=== PATIENT | female | born 1985 | race Two or more races ===

== ENCOUNTER 2018-12-02 01:10 | Inpatient (IN) | payer OTHER, MEDICAID ==
[2018-12-02] MEDS ORDERED: CARBOPROST 250 MCG INJ IM ×2 (03:00→17:00)
[2018-12-02] MEDS ORDERED: MISOPROSTOL 200 MCG TAB PR ×2 (03:00→17:00)
[2018-12-02] MEDS ORDERED: METHYLERGONOVINE 0.2 MG INJ IM ×2 (03:00→17:00)
[2018-12-02] MEDS ORDERED: OXYTOCIN 30 UNITS/LR 500 ML IV ×2 (03:00)
[2018-12-02 04:22] LABS: ADD MAN DIFF? NO
[2018-12-02 04:25] LABS: BASOPHILS % 0.4 % (0.0-2.0); EOSINOPHILS # 0.1 10^3/ul (0.0-0.5); EOSINOPHILS % 0.9 % (0.0-7.0); HEMATOCRIT 33.3 % (37.0-47.0); HEMOGLOBIN 10.5 g/dl (12.0-16.0); LYMPHOCYTES # 1.4 10^3/ul (0.8-2.9); LYMPHOCYTES % 25.9 % (15.0-51.0); MEAN CORPUSCULAR HEMOGLOBIN 25.4 pg (29.0-33.0); MEAN CORPUSCULAR HGB CONC 31.5 g/dl (32.0-37.0); MEAN CORPUSCULAR VOLUME 80.4 fl (82.0-101.0); MEAN PLATELET VOLUME 12.5 fl (7.4-10.4); MONOCYTE # 0.4 10^3/ul (0.3-0.9); NEUTROPHIL # 3.5 10^3/ul (1.6-7.5); NEUTROPHILS % 64.2 % (39.0-77.0); PLATELET COUNT 157 10^3/UL (140-415); RED BLOOD COUNT 4.14 10^6/ul (4.20-5.40); RED CELL DISTRIBUTION WIDTH 15.9 % (11.5-14.5)
[2018-12-02 04:25] LABS: WHITE BLOOD COUNT 5.4 10^3/ul (4.8-10.8)
[2018-12-02] MEDS: LACTATED RINGER'S 1,000 ML IV ×2 (04:38→10:42)
[2018-12-02 04:42] LABS: ADD UMIC YES; ALANINE AMINOTRANSFERASE 14 IU/L (13-69); ALBUMIN/GLOBULIN RATIO 0.93; ALKALINE PHOSPHATASE 127 IU/L (42-121); ANION GAP 6 (5-13); ASPARTATE AMINO TRANSFERASE 17 IU/L (15-46); BILIRUBIN,INDIRECT 0.3 mg/dl (0-1.1); BILIRUBIN,TOTAL 0.3 mg/dl (0.2-1.3); BLOOD UREA NITROGEN 14 mg/dl (7-20); CALCIUM 8.8 mg/dl (8.4-10.2); CARBON DIOXIDE 23 mmol/L (21-31); CHLORIDE 108 mmol/L (97-110); CREATININE 0.57 mg/dl (0.44-1.00); Estimated GFR > 60 mL/min (>60); GLUCOSE 92 mg/dl (70-220); POTASSIUM 4.2 mmol/L (3.5-5.1); SODIUM 137 mmol/L (135-144); TOTAL PROTEIN 6.2 g/dl (6.1-8.1); UR ASCORBIC ACID NEGATIVE (NEGATIVE); UR BACTERIA FEW /HPF (NONE SEEN); UR BILIRUBIN (Dip) NEGATIVE (NEGATIVE); UR BLOOD (Dip) NEGATIVE (NEGATIVE); UR CLARITY CLOUDY (CLEAR); UR COLOR YELLOW (YELLOW); UR GLUCOSE (Dip) NEGATIVE (NEGATIVE); UR KETONES (Dip) NEGATIVE (NEGATIVE); UR LEUKOCYTE ESTERASE (Dip) 2+ Leu/ul (NEGATIVE); UR MUCUS FEW /HPF (NONE SEEN); UR NITRITE (Dip) NEGATIVE (NEGATIVE); UR RBC 1 /HPF (0-5); UR SPECIFIC GRAVITY (Dip) 1.029 (1.003-1.030); UR SQUAMOUS EPITHELIAL CELL MODERATE /HPF (FEW); UR TOTAL PROTEIN (Dip) 1+ mg/dl (NEGATIVE); UR UROBILINOGEN (Dip) NEGATIVE (NEGATIVE); UR WBC 7 /HPF (0-5)
[2018-12-02 04:45] LABS: INR 0.92; PROTIME 12.5 Sec (11.9-14.9)
[2018-12-02 04:46] LABS: PARTIAL THROMBOPLASTIN TIME 27.7 Sec (23.0-35.0)
[2018-12-02] MEDS: OXYTOCIN 30 UNITS/LR 500 ML IV ×4 (05:09→19:27)
[2018-12-02 05:13] LABS: HEPATITIS B SURFACE ANTIGEN NEGATIVE (NEGATIVE)
[2018-12-02 07:01] LABS: HIV 1&2 ANTIBODY NEGATIVE (NEGATIVE)
[2018-12-02] MEDS: BUTORPHANOL 2 MG INJ IV ×2 (09:35→12:28)
[2018-12-02] MEDS: LIDOCAINE 1% (MPF) 30 ML INJ INJ (12:30)
[2018-12-02] MEDS: IBUPROFEN 600 MG TAB PO ×2 (15:25→18:00)
[2018-12-02] MEDS ORDERED: OXYCODONE/ASPIRIN (4.88/325) TAB PO (17:00)
[2018-12-02] MEDS ORDERED: ZOLPIDEM 5 MG TAB PO (17:00)
[2018-12-02] MEDS ORDERED: LANOLIN HPA 1 PKT TOP (17:00)
[2018-12-02] MEDS: OXYCODONE/ASPIRIN (4.88/325) TAB PO ×2 (17:11→20:42)
[2018-12-02] MEDS: SENNA/DOCUSATE NA (8.6MG/50MG) TAB PO (20:42)
[2018-12-02] MEDS: BENZOCAINE 20% 56 ML SPRAY TOP (20:43)
[2018-12-02] MEDS: WITCH HAZEL/GLYCERIN PAD PR (20:43)
[2018-12-02 21:56] LABS: RAPID PLASMA REAGIN NONREACTIVE (NR)
[2018-12-03] MEDS: IBUPROFEN 600 MG TAB PO ×5 (00:05→23:38)
[2018-12-03] MEDS: LACTATED RINGER'S 1,000 ML IV (07:33)
[2018-12-03 08:56] LABS: ADD MAN DIFF? NO
[2018-12-03] MEDS: SENNA/DOCUSATE NA (8.6MG/50MG) TAB PO ×2 (09:00→21:03)
[2018-12-03 09:04] LABS: WHITE BLOOD COUNT 5.8 10^3/ul (4.8-10.8)
[2018-12-03 09:04] LABS: HEMATOCRIT 30.9 % (37.0-47.0); HEMOGLOBIN 9.7 g/dl (12.0-16.0); MEAN CORPUSCULAR HEMOGLOBIN 25.8 pg (29.0-33.0); MEAN CORPUSCULAR HGB CONC 31.4 g/dl (32.0-37.0); MEAN CORPUSCULAR VOLUME 82.2 fl (82.0-101.0); RED BLOOD COUNT 3.76 10^6/ul (4.20-5.40); RED CELL DISTRIBUTION WIDTH 15.9 % (11.5-14.5)
[2018-12-03 09:05] LABS: BASOPHILS % 0.3 % (0.0-2.0); EOSINOPHILS # 0.1 10^3/ul (0.0-0.5); EOSINOPHILS % 1.6 % (0.0-7.0); LYMPHOCYTES # 1.6 10^3/ul (0.8-2.9); LYMPHOCYTES % 27.3 % (15.0-51.0); MEAN PLATELET VOLUME 12.1 fl (7.4-10.4); MONOCYTE # 0.5 10^3/ul (0.3-0.9); MONOCYTES % 7.8 % (0.0-11.0); NEUTROPHIL # 3.6 10^3/ul (1.6-7.5); NEUTROPHILS % 62.3 % (39.0-77.0); PLATELET COUNT 127 10^3/UL (140-415)
[2018-12-03] MEDS: ACETAMINOPHEN 1000MG/100ML IV 100 ML IVPB (09:12)
[2018-12-04] MEDS: IBUPROFEN 600 MG TAB PO ×2 (06:00→12:00)
[2018-12-04] MEDS: SENNA/DOCUSATE NA (8.6MG/50MG) TAB PO (09:00)
[2018-12-04] MEDS: DIPHTH/TET/ACEL PERTUSS (ADULT) 0.5 ML VIAL IM* (09:00)
[2018-12-04] MEDS: OXYCODONE/ASPIRIN (4.88/325) TAB PO (14:51)
== END 2018-12-04 17:56 | disposition home or self-care (01) | DRG 807 ==
LOC: L-D 01:10 → PP1 16:56
PROC: 10E0XZZ Delivery of Products of Conception, External Approach (ICD-10-PCS; principal; 2018-12-03)
PROC: 0KQM0ZZ Repair Perineum Muscle, Open Approach (ICD-10-PCS; 2018-12-03)
PROC: 3E033VJ Introduction of Other Hormone into Peripheral Vein, Percutaneous Approach (ICD-10-PCS; 2018-12-03)
DX: O48.0 Post-term pregnancy (principal); Z37.0 Single live birth; O70.1 Second degree perineal laceration during delivery; Z3A.40 40 weeks gestation of pregnancy
CPT/HCPCS: 80053; 81001; 85025; 85384; 85610; 85730; 86592; 86703; 86850; 86900; 86901; 87340; 93005